=== PATIENT | female | born 2000 | race American Indian/Alaskan Native ===

== ENCOUNTER 2021-04-23 03:49 | Inpatient (IN) | payer BC, SELFPAY ==
[~2021-04-23] VITALS: Ht 157.5 cm; Wt 43.1 kg
[2021-04-23 03:58] VITALS: BP 116/75
[2021-04-23] MEDS ORDERED: NACL 0.9% 1,000 ML IV ONE ×2 (04:30→05:55)
[2021-04-23] MEDS ORDERED: ACETYLCYSTEINE 20% (200 MG/ML) 200 MG/ML VIAL PO ONE ×3 (04:30→05:35)
--- NOTE | 2021-04-23 04:40 | NUR ---
NG TUBE PLACED AT THIS TIME. 14FR SECURED AND CONFIRMED. GASTRIC LAVAGE INITIATED. PER ER MD LAVAGE 1L. POISON CONTROL CONTACTED AT 2404. NO REFERENCE NUMBER GIVEN.
[2021-04-23] MEDS ORDERED: ACETYLCYSTEINE IV PER PHARMACY 1 EA MISC MC SCH (04:45)
--- NOTE | 2021-04-23 04:50 | NUR ---
REDDY HANNA SENT
[2021-04-23] MEDS ORDERED: ACETYLCYSTEINE 20% (200 MG/ML) 200 MG/ML VIAL ONE ×3 (04:52→05:41)
--- NOTE | 2021-04-23 04:56 | NUR ---
PATIENT REFUSED ABG
--- NOTE | 2021-04-23 05:00 | NUR ---
PT WOULD NOT REMAIN STILL, AND VERBALLY REFUSED THE ABG, DR. SILVA NOTIFIED.
--- NOTE | 2021-04-23 05:20 | NUR ---
LABS SENT OFF
--- NOTE | 2021-04-23 05:33 | NUR ---
REPORTS PREVIOUS SI ATTEMPTS/
[2021-04-23 05:35] LABS: BASOPHILS # (AUTO) 0.1 K/uL (0.00-0.22); BASOPHILS % (AUTO) 0.6 % (0.0-2.0); HEMATOCRIT 37.8 % (36-48); HEMOGLOBIN 12.8 g/dL (12.0-16.0); LYMPHOCYTES # (AUTO) 3.4 K/uL (2.5-16.5); LYMPHOCYTES % (AUTO) 42.3 % (20.5-51.1); MEAN CORPUSCULAR HEMOGLOBIN 31 pg (27-31); MEAN CORPUSCULAR HGB CONC 34 g/dL (33-37); MEAN CORPUSCULAR VOLUME 92.3 fL (80-94); MONOCYTES # (AUTO) 0.6 K/uL (0.8-1.0); MONOCYTES % (AUTO) 6.8 % (1.7-9.3); NEUTROPHILS # (AUTO) 4.1 K/uL (1.8-7.7); NEUTROPHILS % (AUTO) 50.3 % (42.2-75.2); PLATELET COUNT (AUTO) 286 K/uL (140-450); RED CELL DISTRIBUTION WIDTH 14.8 % (11.6-13.7); WHITE BLOOD COUNT (AUTO) 8.1 K/uL (4.5-11.0)
[2021-04-23 05:49] LABS: PROTHROMBIN TIME 9.3 secs (10.8-13.4)
--- NOTE | 2021-04-23 05:50 | NUR ---
5150 HOLD INITIATED AT THIS TIME
[2021-04-23 05:51] LABS: ACETONE, SERUM NEGATIVE (NEGATIVE)
[2021-04-23 06:10] LABS: ALBUMIN 3.9 g/dL (3.4-5.0); ANION GAP 18.2 (8-16); ASPARTATE AMINOTRANSFERASE 17 U/L (15-37); CARBON DIOXIDE 22.2 mmol/L (21-32); CHLORIDE 109 mmol/L (98-107); CREATININE 0.6 mg/dL (0.6-1.3); GFR ARICAN-AMERICAN 166 mL/min (>90); GLUCOSE 91 mg/dL (74-106); POTASSIUM 3.4 mmol/L (3.5-5.1); SODIUM SERUM 146 mmol/L (136-145); TOTAL BILIRUBIN 0.4 mg/dL (0.0-1.0); UREA NITROGEN, BLOOD 13 mg/dL (7-18)
[2021-04-23 06:21] LABS: ACETAMINOPHEN 275.1 ug/ml (10-30)
[2021-04-23] MEDS ORDERED: ACETYLCYSTEINE IV SCH ×3 (06:30→13:00)
[2021-04-23] MEDS ORDERED: DEXTROSE 5% IV SCH ×3 (06:30→13:00)
--- NOTE | 2021-04-23 06:48 | NUR ---
FRIEND ALTHEA [phone]
--- NOTE | 2021-04-23 06:51 | NUR ---
PT MOVED FROM BED 11 TO BED 5
[2021-04-23] MEDS ORDERED: POTASSIUM CHLORIDE 10 MEQ TABER PO PRN (07:00)
[2021-04-23] MEDS ORDERED: DOCUSATE SODIUM 100 MG GELCAP PO PRN (07:00)
[2021-04-23] MEDS ORDERED: ACETAMINOPHEN 325 MG TAB PO PRN (07:00)
[2021-04-23] MEDS ORDERED: ONDANSETRON 4 MG/2 ML VIAL IM/IVP PRN (07:00)
[2021-04-23] MEDS ORDERED: MAGNESIUM OXIDE 400 MG TAB PO PRN (07:00)
[2021-04-23] MEDS ORDERED: MORPHINE SULFATE 2 MG/ML SYR IVP PRN (07:00)
[2021-04-23] MEDS ORDERED: SODIUM PHOS / POTASSIUM PHOS 1 PKT PDR PO PRN (07:00)
[2021-04-23] MEDS ORDERED: KETOROLAC 15 MG/ML VIAL IVP PRN (07:00)
--- NOTE | 2021-04-23 07:18 | NUR ---
Report and continuation of care received from FERNANDA Madden.
--- NOTE | 2021-04-23 07:25 | NUR ---
NG tube remains in place, rescured with split tape. Patient requested emesis bag, states nausea.
[2021-04-23 07:30] LABS: MAGNESIUM 1.9 mg/dL (1.8-2.4); PHOSPHORUS 3.1 mg/dL (2.5-4.9)
--- NOTE | 2021-04-23 07:30 | NUR ---
Patient vomited 60cc emesis.
--- NOTE | 2021-04-23 07:58 | NUR ---
Repeat blood sample handed to CPT. Roselia
[2021-04-23] MEDS ORDERED: ACETYLCYSTEINE 20% (200 MG/ML) 200 MG/ML VIAL PO SCH (08:00)
--- NOTE | 2021-04-23 08:17 | NUR ---
FATHER (LAURA LYNN) [phone]
[2021-04-23 09:25] LABS: ALBUMIN 3.6 g/dL (3.4-5.0); CARBON DIOXIDE 19.2 mmol/L (21-32); CREATININE 0.4 mg/dL (0.6-1.3); POTASSIUM 3.2 mmol/L (3.5-5.1); TOTAL BILIRUBIN 0.4 mg/dL (0.0-1.0)
--- NOTE | 2021-04-23 09:33 | NUR ---
Patient resting in semi-fowlers position with emesis bag in place. secured entrance monitor in place. VSS; respirations even/unlabored. pt requesting med for nausea.
--- NOTE | 2021-04-23 09:50 | NUR ---
Spoke with Alec from Poison Control. Alec made aware of 0730 repeat Tylenol value of 209.5. Alec states to continue first and second dose as prescribed, and to change 3rd dose (16 hour) from 100mg/kg to 200mg/kg. Repeat Tylenol with LST (CMP) on the 15th hour (1 hour before 3rd dose finishes). States goal to have LST normal and Tylenol lab value to be undetectable. Will follow up throughout patient's stay. DR. PEDERSON CONTACTED AND MADE AWARE OF 3RD DOSE CHANGES FROM 100MG/KG TO 200MG/KG.
[2021-04-23] MEDS: PANTOPRAZOLE 40 MG INJ VIAL IVP SCH (10:17)
[2021-04-23] MEDS: NACL 0.9% 1,000 ML IV SCH ×2 (10:19→18:42)
--- NOTE | 2021-04-23 10:36 | NUR ---
GORDON walked to lab and handed to CPT Danilo
[2021-04-23 11:02] LABS: APPEARANCE,URINE HAZY (CLEAR); BILIRUBIN,URINE NEGATIVE (NEGATIVE); BLOOD, URINE NEGATIVE (NEGATIVE); COLOR,URINE YELLOW (YELLOW); LEUKOCYTE ESTERASE ,URINE TRACE (NEGATIVE); NITRITE, URINE NEGATIVE (NEGATIVE); PH,URINE 6.5 (5.0-9.0); UGLUCOSE NEGATIVE (NEGATIVE)
[2021-04-23 11:15] LABS: RBC,URINE 0-5 /HPF (0-5); WBC,URINE 0-5 /HPF (0-5)
[2021-04-23 11:16] LABS: HYALINE CASTS, URINE 0-10 /LPF (None Seen)
[2021-04-23 11:21] LABS: BARBITURATE, URINE NEGATIVE ng/ml (NEG <=200); BENZODIAZEPINE, URINE NEGATIVE ng/mL (NEG <=200); CANNABINOID, URINE NEGATIVE ng/mL (NEG <=50); COCAINE, URINE NEGATIVE ng/mL (NEG <=300); OPIATE, URINE NEGATIVE ng/mL (NEG <=2000); PHENCYCLIDINE SCREEN,URINE NEGATIVE ng/mL (NEG <=25)
--- NOTE | 2021-04-23 12:29 | NUR ---
Pt denies being hungry; refusing meal tray at this time. Patient asleep in semi-fowlers position with IVPB medication running. irrigating pump operator in place; VSS respirations even/unlabored. Bed locked in lowest position, side rails x 1, call light in reach.
--- NOTE | 2021-04-23 12:57 | NUR ---
Patient given meal tray at bedside per request
--- NOTE | 2021-04-23 13:20 | NUR ---
Patient HOB upright; pt completed 90% of meal. All pt needs met at this time. Denies nausea, pain.
--- NOTE | 2021-04-23 14:41 | NUR ---
DR PEDERSON AT BEDSIDE EVALUATING PT
--- NOTE | 2021-04-23 14:43 | NUR ---
Dr. Mercer made aware patient had appetite and completed 90% of lunch meal without nausea/vomiting since Zofran IVP. states to d/c NG tube at this time
--- NOTE | 2021-04-23 14:54 | NUR ---
Pt ambulated to restroom with steady/even gait.
--- NOTE | 2021-04-23 14:54 | NUR ---
NG tube removed; patient tolerated removal well. Bleeding noted to left nostril, packed and pressure applied.
--- NOTE | 2021-04-23 15:05 | NUR ---
Telepsych at bedside with patient. Patient awake and sitting upright with iPad in place.
--- NOTE | 2021-04-23 15:15 | NUR ---
Per Dr. Manning, patient will remain on 5150 hold and transported to [facility] (if insurance approves) after medically cleared.
--- NOTE | 2021-04-23 16:25 | NUR ---
RECEIVED VERBAL CONSENT FROM CHRISTIANA TO SPEAK WITH [facility] AND DISCLOSE INFORMATION REGARDING STATUS UPDATE AND 5150 HOLD. PATIENT A&OX4, STATES "YES, I'D LIKE FOR HIM TO KNOW WHAT'S GOING ON." [facility] PROVIDED WITH STATUS UPDATE AND REQUESTED TO DROP OFF BELONGINSG TO PATIENT. [facility] MADE AWARE THAT PATIENT WILL NOT HAVE ACCESS TO BELONGINGS UNTIL MEDICALLY CLEARED. PATIENT AND [facility] ACKNOWLEDGED AND AGREED TO HAVE BELONGINGS BROUGHT BY [facility] TO BE SECURED BY SECURITY FOR FUTURE USE.
--- NOTE | 2021-04-23 16:30 | NUR ---
Licha Melendrez (block machine operator) called for update; no update provided; MT advised pt is still in ER. Licha states to call when known DC/transfer to psychiatric facility, and to "let her know she's available for whatever." #: [phone]
--- NOTE | 2021-04-23 16:32 | NUR ---
ABRAN (FRIEND): [phone] RONNA (FRIEND): [phone] (PREFERRED CONTACT)
--- NOTE | 2021-04-23 17:02 | NUR ---
PATIENT BELONGINGS DROPPED OFF AND PERSONAL BELONGINGS LIST UPDATED BY EMT. EARRINGS PLACED INTO CUP + LABELED.
--- NOTE | 2021-04-23 17:26 | NUR ---
Patient sitting in semi-fowlers position, IVF and IVPB continued. room service runner in place. VSS; respirations even/unlabored. Bed locked in lowest position, side rails x 1, call light in reach.
--- NOTE | 2021-04-23 18:05 | NUR ---
Dinner mealtray at bedside. Patient completing meal at this time.
--- NOTE | 2021-04-23 18:30 | NUR ---
Pt finished 90% on dinner mealtray. All pt needs met. Denies nausea, pain.
--- NOTE | 2021-04-23 18:40 | NUR ---
Patient provided with phone with father.
--- NOTE | 2021-04-23 19:16 | NUR ---
Report and transfer of care given to FERNANDA Kincaid.
--- NOTE | 2021-04-23 19:20 | NUR ---
PT IS AWAKE AND ALERT, SITTING UP IN BED. VSS. PT IS IN STABLE CONDITION. ALL NEEDS MET AT THIS TIME. BED LOCKED IN LOWEST POSITION, SIDE RAILS X1.
--- NOTE | 2021-04-23 21:30 | NUR ---
PT IS SLEEPING, EYES CLOSED OPENS TO SOUND. EQUAL RISE AND FALL OF CHEST WALL. VSS. PT IS IN STABLE CONDITION. BED LOCKED IN LOWEST POSITION, SIDE RAILS X2.
--- NOTE | 2021-04-23 23:44 | NUR ---
MRSA SWAB COLLECTED AND TAKEN TO LAB.
[2021-04-24] MEDS: NACL 0.9% 1,000 ML IV SCH ×2 (03:10→13:01)
--- NOTE | 2021-04-24 06:25 | NUR ---
lab at bedside.
[2021-04-24 06:55] LABS: BASOPHILS % (AUTO) 0.4 % (0.0-2.0); HEMATOCRIT 31.5 % (36-48); HEMOGLOBIN 10.7 g/dL (12.0-16.0); LYMPHOCYTES # (AUTO) 2.3 K/uL (2.5-16.5); LYMPHOCYTES % (AUTO) 26.3 % (20.5-51.1); MEAN CORPUSCULAR HEMOGLOBIN 31 pg (27-31); MEAN CORPUSCULAR HGB CONC 34 g/dL (33-37); MEAN CORPUSCULAR VOLUME 92.4 fL (80-94); MONOCYTES # (AUTO) 0.6 K/uL (0.8-1.0); MONOCYTES % (AUTO) 6.6 % (1.7-9.3); NEUTROPHILS # (AUTO) 5.7 K/uL (1.8-7.7); NEUTROPHILS % (AUTO) 66.7 % (42.2-75.2); PLATELET COUNT (AUTO) 231 K/uL (140-450); RED BLOOD CELL COUNT(AUTO) 3.41 MIL/uL (4.20-5.40); RED CELL DISTRIBUTION WIDTH 14.4 % (11.6-13.7); WHITE BLOOD COUNT (AUTO) 8.6 K/uL (4.5-11.0)
--- NOTE | 2021-04-24 06:55 | NUR ---
spoke to poison control, updated on pt's condition. stated to get a repeat INR.
--- NOTE | 2021-04-24 07:06 | NUR ---
blood collected and given to iris from lab.
[2021-04-24 07:14] LABS: ALBUMIN 2.8 g/dL (3.4-5.0); ANION GAP 13.2 (8-16); CREATININE 0.5 mg/dL (0.6-1.3); POTASSIUM 3.2 mmol/L (3.5-5.1); TOTAL BILIRUBIN 0.6 mg/dL (0.0-1.0)
[2021-04-24 07:22] LABS: PROTHROMBIN TIME 12.1 secs (10.8-13.4)
--- NOTE | 2021-04-24 07:22 | NUR ---
Pt report given to valentin anne. Transfer of care at this time.
--- NOTE | 2021-04-24 07:23 | NUR ---
report and continuation of care received from valentin toscano.
--- NOTE | 2021-04-24 07:54 | NUR ---
PATIENT HAS BEEN SCREENED AND CATEGORIZED HIGH NUTRITION RISK. PATIENT WILL BE SEEN WITHIN 1-2 DAYS OF ADMISSION. 04/24/[address]
--- NOTE | 2021-04-24 08:24 | NUR ---
PATIENT EATING BREAKFAST AT BEDSIDE, AWAKE AND ALERT, RR EVEN AND UNLABORED.
--- NOTE | 2021-04-24 08:29 | NUR ---
SPOKE WITH RATNA FROM [employer], PT IS CLEARED BY [employer].
[2021-04-24] MEDS ORDERED: PANT40EC PO (09:23)
[2021-04-24] MEDS ORDERED: POTASSIUM CHLORIDE 10 MEQ TABER PO PRN (09:25)
[2021-04-24] MEDS: PANTOPRAZOLE 40 MG INJ VIAL IVP SCH (09:49)
--- NOTE | 2021-04-24 11:08 | NUR ---
PATIENT RESTING IN BED AT THIS TIME, VSS.
--- NOTE | 2021-04-24 11:32 | NUR ---
DIETITION AT BEDSIDE EVALUATING PATIENT.
--- NOTE | 2021-04-24 11:55 | NUR ---
PATIENT EATING LUNCH AT BEDSIDE.
--- NOTE | 2021-04-24 12:10 | NUR ---
PATIENT AMBULATED TO BT WITH STEADY GAIT.
--- NOTE | 2021-04-24 13:01 | NUR ---
Call Center made aware pt packet is under review at [facility] , will notify ER when a placement is found.
--- NOTE | 2021-04-24 13:24 | NUR ---
DR. URIAS ACCEPTING PHYSICIAN INTAKE CARE. SET UP TRANSPORT FOR US. NO FURTHER REPORT. [phone] CAN.
--- NOTE | 2021-04-24 13:59 | NUR ---
PATIENT AMBULATED TO BATHROOM STEADY GAIT.
--- NOTE | 2021-04-24 14:10 | NUR ---
04/24/21 RD INITIAL ASSESSMENT COMPLETED PLEASE REFER TO NUTRITION ASSESSMENT UNDER CARE ACTIVITY FOR ESTIMATED NUTRITIONAL NEEDS. 1. CONTINUE CARDIAC DIET TOLERATED 2. RD TO FOLLOW-UP 5-7 DAYS, LOW RISK LUZ ELENA [address]
[2021-04-24 14:38] VITALS: BP 103/66
--- NOTE | 2021-04-24 14:38 | NUR ---
Patient transferred to [facility]. transferred due to HIGHER LEVEL OF CARE. Receiving facility has accepting physician and available space. ER physician has signed transfer form. Patient or responsible constitution party has agreed to transfer and signed form. Patient belongings inventoried and will be sent with patient. Copy of nursing notes, lab reports, EKG, Physicians Orders and X-rays to be sent with patient. Report called to CAN at receiving facility. [facility] ambulance service transfered patient at 1338.
--- NOTE | 2021-04-24 14:39 | NUR ---
DC PLANNING: CM RECEIVED A CALL FROM [facility] FOR [facility] ([phone]), INTRODUCED HERSELF AND STATED THAT SHE WAS AVAILABLE IF THERE WERE ANY DC NEEDS. AUTH NUMBER FOR ADMISSION [id number], [facility] CONFIRMED WITH ADMITTING THAT THEY HAD INSURANCE INFORMATION AND AUTH WHICH THEY CONFIRMED THAT THEY DO. CM WILL FOLLOW FOR NEEDS.
== END 2021-04-24 14:38 | DRG 917 ==
LOC: MED 03:49 → MTU 07:04
PROVIDERS: ADMIT Hospitalist; ATTEND Hospitalist
DX: T39.1X1A Poisoning by 4-Aminophenol derivatives, accidental (unintentional), initial encounter (principal); G92.9 Unspecified toxic encephalopathy; E87.0 Hyperosmolality and hypernatremia; E87.2 Acidosis; F10.129 Alcohol abuse with intoxication, unspecified; Y90.9 Presence of alcohol in blood, level not specified; F32.9 Major depressive disorder, single episode, unspecified; E87.6 Hypokalemia; Z20.822 Contact with and (suspected) exposure to COVID-19; Y92.89 Other specified places as the place of occurrence of the external cause
CPT/HCPCS: 36415; 71045; 80053; 80305; 81001; 81025; 82009; 83735; 84100; 85025; 85610; 85730; 87081; 96361; 96365; 96375; 99291; C9113; G0480; G0482; J0132; J2405; J7060; J7608; Q0092